=== PATIENT | male | born 1950 | race Caucasian/White ===

== ENCOUNTER 2023-02-27 11:45 | Outpatient (CLI) | payer MEDICARE, OTHER | END 2023-02-27 11:46 | disposition home or self-care (01) | LOC: BICRAD 11:45 | PROVIDERS: ATTEND Internal Medicine Rheumatology | DX: M35.00 Sjogren syndrome, unspecified (principal); G89.4 Chronic pain syndrome | CPT/HCPCS: 71046 ==